=== PATIENT | female | born 2000 | race Caucasian/White ===

== ENCOUNTER 2021-12-21 16:24 | Emergency (ER) | payer OTHER ==
[~2021-12-21] VITALS: Ht 177.8 cm; Wt 89.4 kg
== END 2021-12-21 22:32 | disposition home or self-care (01) ==
LOC: ER 16:24
DX: K29.70 Gastritis, unspecified, without bleeding (principal); R10.13 Epigastric pain

== ENCOUNTER 2022-10-29 15:26 | Emergency (ER) | payer OTHER ==
[~2022-10-29] VITALS: Ht 177.8 cm; Wt 95.3 kg
== END 2022-10-29 20:18 | disposition home or self-care (01) ==
LOC: ER 15:26
DX: K52.89 Other specified noninfective gastroenteritis and colitis (principal)

== ENCOUNTER 2024-01-28 15:39 | Emergency (ER) | payer OTHER ==
[~2024-01-28] VITALS: Ht 180.3 cm; Wt 99.8 kg
[2024-01-28 16:07] VITALS: BP 134/85; O2SAT 100
[2024-01-28] MEDS ORDERED: KETOROLAC TROMETHAMINE 60 MG VIAL IM STA (16:28)
[2024-01-28] MEDS ORDERED: DEXAMETHASONE 4 MG TABLET PO STA (16:29)
== END 2024-01-28 16:56 | disposition home or self-care (01) ==
LOC: ER 15:40
DX: G44.209 Tension-type headache, unspecified, not intractable (principal)